=== PATIENT | male | born 1945 | race Asian ===

== ENCOUNTER 2019-05-10 10:19 | Day surgery (SDC) | payer MEDICARE ==
[~2019-05-10 10:19] MED LIST: GELATIN SPONGE SIZE 100 TP ONE; THROMBIN (RECOMBINANT) 5,000 UNIT VIAL TP ONE; ceFAZolin/Water 2 GM/20 ML 2 GM/20 ML SYRINGE IV NR
[2019-05-10] MEDS ORDERED: SODIUM CHLORIDE 0.9% 250ML 250 ML ONE (10:37)
[2019-05-10] MEDS ORDERED: HEPARIN 10,000 UNITS/10 ML VIAL ONE (10:37)
[2019-05-10] MEDS ORDERED: GELATIN SPONGE SIZE 100 TP ONE ×2 (10:38→14:05)
[2019-05-10] MEDS ORDERED: THROMBIN (RECOMBINANT) 5,000 UNIT VIAL TP ONE ×2 (10:39→14:05)
[2019-05-10] MEDS ORDERED: PROTAMINE SULFATE 50 MG/5 ML INJ ONE (10:39)
[2019-05-10] MEDS ORDERED: LIDOCAINE MPF (2%) 20 MG/1 ML VIAL 5 ML ONE (10:40)
[2019-05-10] MEDS ORDERED: PROPOFOL 200 MG/20 ML VIAL IV ONE (10:40)
[2019-05-10] MEDS ORDERED: HYDROmorphone 1 MG/1 ML INJ ONE (10:40)
[2019-05-10] MEDS ORDERED: SODIUM CHLORIDE 0.9% 1000 ML 1,000 ML IV SCH (11:00)
[2019-05-10] MEDS ORDERED: CLINDAMYCIN 600 MG/50 mL 600 MG/50 ML BAG IV NR (11:00)
--- NOTE | 2019-05-10 11:03 | Anesthesia Consultation ---
Anesthesia Consult and Med Hx Date of service: 05/10/19 - Airway Anesthetic Teeth Evaluation: Edentulous ROM Head & Neck: Adequate Mental/Hyoid Distance: Inadequate Mallampati Class: Class I Intubation Access Assessment: Probably Good - Pulmonary Exam CTA: Yes - Cardiac Exam Cardiac Exam: RRR - Pre-Operative Health Status ASA Pre-Surgery Classification: ASA3 Proposed Anesthetic Plan: General - Pulmonary Hx Smoking: No Hx Respiratory Symptoms: No Hx Sleep Apnea: No - Cardiovascular System Hx Hypertension: Yes Hx Heart Attack/AMI: No (hx CHF; normal EF on most recent TTE) Hx Percutaneous Transluminal Coronary Angioplasty (PTCA): No Hx Cardia Arrhythmia: Yes (bradycardia) Hx Pacemaker: Yes (last interrogated 3 months ago per patient) - Gastrointestinal Hx Gastroesophageal Reflux Disease: No - Endocrine Hx End Stage Renal Disease: Yes (last HD this morning ) Hx Liver Disease: No Hx Insulin Dependent Diabetes: No Hx Non-Insulin Dependent Diabetes: No Hx Thyroid Disease: No - Other Systems Hx Obesity: No - Additional Comments Anesthesia Medical History Comments: No hx anesthetic complications. Most recent cardiology records faxed from [facility]. TTE 03/2019 EF 50-55%, moderate MR/TR. Neg nuc stress test in 2017. EKG v-paced. Patient reports he has had a more recent nuc stress test for follow up but that results have not yet been reported. He denies hx chest pain, dyspnea, orthopnea.
[2019-05-10] MEDS ORDERED: fentaNYL 100 MCG/2 ML INJ IV PRN (11:22)
--- NOTE | 2019-05-10 11:22 | Anesthesia Day of Surgery ---
Anesthesia Day of Surgery - Day of Surgery Patient Examined: Yes Patient H&P Reviewed: Yes Patient is NPO: Yes Beta Blockers: Yes (metoprolol 05/09/2019 PM)
[2019-05-10 11:25] LABS: Calcium 9.8 mg/dL (8.4-10.2)
[2019-05-10] MEDS ORDERED: PHENYLEPHRINE/NS 1,000 MCG/10 ML SYRINGE (OR USE) IV ONE (13:33)
[2019-05-10] MEDS ORDERED: HEPARIN 10,000 UNITS/10 ML VIAL IV ONE (13:38)
[2019-05-10] MEDS ORDERED: SODIUM CHLORIDE 0.9% 250 ML IVPB IV ONE (13:38)
[2019-05-10] MEDS ORDERED: SODIUM CHLORIDE 0.9% IRR 1,500 ML BOTTLE IR ONE (13:40)
[2019-05-10] MEDS ORDERED: oxyCODONE /ACETAMINOPHEN 5-325MG TAB PO PRN (14:36)
--- NOTE | 2019-05-10 14:36 | Post Operative Note ---
Pre-op diagnosis: ESRD Post-op diagnosis: same Procedure: Left Arm AV Fistula Branch Ligation x 2 Anesthesia: GETA Surgeon: MAURY FOSTER Estimated blood loss: minimal Pathology: none Condition: stable Disposition: PACU
--- NOTE | 2019-05-10 14:39 | Short Stay Summary ---
Short Stay Documentation Date of service: 05/10/19 - History H&P: obtained from office Past Medical History: ESRD, hypertension - Allergies and Medications Current Medications: Allergies amoxicillin Allergy (Verified 05/07/19 14:13) Unknown clarithromycin Allergy (Verified 05/07/19 14:13) Unknown omeprazole Allergy (Verified 05/07/19 14:13) Unknown Home Medications Medication Instructions Recorded Confirmed Last Taken Type Aspirin 325 mg PO DAILY 05/10/19 05/10/19 05/09/19 History Calcium Acetate 667 mg PO TID 05/10/19 05/10/19 05/09/19 History Clonidine HCl 0.2 mg PO BID 05/10/19 05/10/19 05/09/19 History Cyproheptadine 4 mg PO DAILY 05/10/19 05/10/19 05/09/19 History Docusate Sodium-Senna Tablet 100 mg PO BID 05/10/19 05/10/19 05/09/19 History Esomeprazole Magnesium 40 mg PO DAILY 05/10/19 05/10/19 05/09/19 History Furosemide 80 mg PO BID 05/10/19 05/10/19 05/09/19 History ISOSORBIDE MONOnitrate 30 mg PO DAILY 05/10/19 05/10/19 05/09/19 History Lactulose 15 ml PO TID 05/10/19 05/10/19 05/09/19 History Metoclopramide 5 mg PO 4XD 05/10/19 05/10/19 05/09/19 History Metoprolol SUCCINATE ER TAB 25 mg PO HS 05/10/19 05/10/19 05/09/19 History Tamsulosin 0.4 mg PO BID 05/10/19 05/10/19 05/09/19 History Temazepam 15 mg PO HS 05/10/19 05/10/19 05/09/19 History hydrALAZINE 50 mg PO Q8HR 05/10/19 05/10/19 05/10/19 11:20 History Active Medications Fentanyl (Sublimaze) 50 mcg IV Q5MIN PRN PRN Reason: Pain , Severe (7-10) Stop: 05/11/19 06:21 Sodium Chloride (Nacl 0.9% 1000 Ml) 1,000 mls @ 42 mls/hr IV DIRECT JASMIN Last Admin: 05/10/19 11:20 Dose: 42 mls/hr Documented by: Clindamycin HCl (Cleocin 600 Mg/50 Ml) 600 mg in 50 mls @ 100 mls/hr IV PREOP NR; Protocol Stop: 05/10/19 23:00 Oxycodone/Acetaminophen (Percocet 5/325) 2 tab PO Q4H PRN PRN Reason: Pain, Moderate (4-6) - Physical exam General appearance: no acute distress Lungs: Normal air movement Heart: Regular rate Extremities: no ischemia - Disposition Condition at discharge: Stable Disposition: DC-01 TO HOME OR SELFCARE - Discharge Diagnoses (1) ESRD (end stage renal disease) on dialysis Status: Acute Short Stay Discharge Plan Follow up with: DR ELENO [Other] - 7 Days
[2019-05-10 15:19] VITALS: BP 143/81
--- NOTE | 2019-05-10 17:00 | Post Anesthesia Evaluation ---
- Post Anesthesia Evaluation Patient Participated: Yes Airway Patent: Yes Stable Respiratory Function: Yes Nausea/Vomiting: No Temp > 96.8F: Yes Pain Manageable: Yes Adequeate Hydration: Yes Anesthesia Complications: No Block Receding Appropriately: Not Applicable Patient on Ventilator: No
--- NOTE | 2019-05-10 18:31 | Operative Report ---
STAFF SURGEON: Dr. Dixon Cooney. PREOPERATIVE DIAGNOSIS: End-stage renal disease. POSTOPERATIVE DIAGNOSIS: End-stage renal disease. PROCEDURE PERFORMED: Left arm AV fistula branch ligation x 2. COMPLICATIONS: None. ESTIMATED BLOOD LOSS: Less than 10 mL. ANESTHESIA: General. INDICATIONS FOR PROCEDURE: This is a 73-year-old gentleman with end-stage renal disease, on hemodialysis via left brachiobasilic AV fistula that have been created several years ago. The patient had preoperative imaging that demonstrated branches that were starting from the main fistula and causing the patient to have poor clearance. The patient's branches were considered to be too large for endovascular coiling and so the patient was scheduled to undergo open ligation. The patient was explained the risks, benefits of the procedure, expressed understanding and wished to proceed. DESCRIPTION OF PROCEDURE: After appropriate consent was obtained, the patient was brought back to the operating room and placed on the operating table in supine position with left arm extended. The patient was given appropriate medication for general anesthesia and the left arm prepped and draped in the usual sterile fashion with ChloraPrep. Appropriate preoperative antibiotics were administered. Appropriate timeout was performed indicating correct patient, procedure, and site of the procedure. Then, we began the operation by making a transverse incision near the antecubital fossa. This was carried through subcutaneous tissue with a combination of blunt dissection and electrocautery, a branch that was coming from the previous brachiocephalic AV fistula was identified and ligated. Then, once the branch was identified, it was appropriately mobilized and then proceeded to take 2-0 silk sutures and ligate the branch of the fistula at this level. We then turned our attention to the proximal medial arm, an incision was made here, transversely. Again, this was carried through the subcutaneous tissue with a combination of blunt dissection and electrocautery. The body of the main fistula was identified and mobilized to the scar tissue. Then, the large branch was identified that was diving posteriorly. This was mobilized and again and 2-0 silk sutures were then used to ligate the branch at this level. Once complete, we then irrigated both wounds with saline solution. There was a nice thrill palpable. A great thrill through the fistula. We then proceeded to close both wounds with a deep subcutaneous layer with a 3-0 Vicryl and then the skin was approximated both incisions with 4-0 Monocryl and Dermabond dressing. The patient tolerated the procedure well, emerged from the general anesthesia, the LMA removed and was sent to recovery in stable condition. All sponge, instrument and needle counts were correct at completion of the operation. JOB# [id number] N/NTS
== END 2019-05-10 16:15 | disposition home or self-care (01) ==
LOC: OR 10:19
PROVIDERS: ATTEND Surgery Vascular Surgery
DX: I13.2 Hypertensive heart and chronic kidney disease with heart failure and with stage 5 chronic kidney disease, or end stage renal disease (principal); N18.6 End stage renal disease; I50.9 Heart failure, unspecified; I42.9 Cardiomyopathy, unspecified; Z95.0 Presence of cardiac pacemaker; Z88.6 Allergy status to analgesic agent; Z88.8 Allergy status to other drugs, medicaments and biological substances; Z79.82 Long term (current) use of aspirin; Z79.899 Other long term (current) drug therapy; Z87.891 Personal history of nicotine dependence; Z98.890 Other specified postprocedural states
CPT/HCPCS: 36415; 37607; 80048; A4649; J1170; J1644; J2370; J2704; J7030; J7050; J2720